=== PATIENT | male | born 1960 | race Caucasian/White ===

== ENCOUNTER → 2023-07-30 08:18 | Outpatient (BNVA) | payer OTHER, SELFPAY | PROVIDERS: PCP Nurse Practitioner Family; Referring Provider Nurse Practitioner Family; Visit Provider Specialist | DX: G35 Multiple sclerosis (principal); R56.9 Unspecified convulsions | CPT/HCPCS: 99204 ==

== ENCOUNTER → 2024-07-28 12:02 | Outpatient (BNVA) | payer OTHER, SELFPAY | PROVIDERS: PCP Nurse Practitioner Family; Visit Provider Psychiatry & Neurology Neurology | DX: R56.9 Unspecified convulsions (principal) | CPT/HCPCS: 95813 ==